=== PATIENT | male | born 1970 | race Caucasian/White ===

== ENCOUNTER 2018-10-18 06:39 | Inpatient (IN) ==
[2018-10-18] MEDS ORDERED: M.V.I.-12 10 ML, FOLIC ACID 1 MG, MAGNESIUM SULFATE 1 GM, THIAMINE 100 MG in NS 1,000 ML IV ONE (07:02)
[2018-10-18] MEDS ORDERED: NS 1,000 ML IV ONE ×2 (07:10→10:15)
--- NOTE | 2018-10-18 07:17 | PROVIDER DOCUMENTATION ---
[id number] Abuse/Overdose - General Chief Complaint: Req. Detox Stated Complaint: WITHDRAWLS Time Seen by Provider: 10/18/18 06:56 Source: patient Allergies/Adverse Reactions: Allergies Allergy/AdvReac Type Severity Reaction Status Date / Time No Known Allergies Allergy Verified 10/18/18 06:49 Home Medications: Home Medication List Medication Instructions Recorded Confirmed Last Taken Type Hydroxyzine [Atarax] 10 mg PO DAILY 09/08/15 09/15/15 09/08/15 History Hydromorphone [Dilaudid] 2 mg PO Q4H PRN PRN #30 tablet 09/19/15 Unknown Rx LISINOpril [Prinivil] 10 mg PO DAILY #30 tablet 09/19/15 Unknown Rx - History of Present Illness-Drug/Alcohol Nature of Presenting Problem: 48 Y/O WM with hx of alcoholism states that he has started drinking again in the last week up to 1.5 case of beer or bottle of whiskey daily. Pt states that he wants to detox "at home" and refuses inpt detox. This episode of drinking or use began:: 1 week ago Severity: reports: moderate Situational problems related to:: reports: spouse, other (family and land stress per pt.) Psychiatric Complaints: reports: denies symptoms Associated Symptoms: reports: denies symptoms Any injuries associated with this episode of intoxication?: No Similar Symptoms Previously?: Yes Recently seen or treated by another doctor?: No - Substance Abuse Substance Use: reports: alcohol - Alcohol Abuse Last Drink?: 11:00 Type and amount of last drink?: 1 bottle of whiskey Usually drinks:: binge (pt admits to drinking for past week and nothing before that.) Usual alcohol intake amount?: 1.5 case beer or bottle whiskey Other alcohols?: reports: N/A - Detox/Hospitalizations Previous detox/rehab admissions?: Yes Where was last hospitalization?: unknown What was the diagnosis?: alcohol abuse Currently enrolled in a Methadone Program?: No - Overdose Intentional drug overdose?: No Suicide Risk Assessment: male sex, drug or ETOH abuse Clinician's estimation of suicide risk?: low risk Review of Systems - Adult - REVIEW OF SYSTEMS - ADULT Constitutional: reports: no symptoms reported, see HPI Eyes: reports: no symptoms reported, see HPI Ears, Nose, Mouth & Throat: reports: no symptoms reported, see HPI Cardiovascular: reports: no symptoms reported, see HPI Respiratory: reports: no symptoms reported, see HPI Gastrointestinal: reports: no symptoms reported, see HPI Genitourinary: reports: no symptoms reported, see HPI Musculoskeletal: reports: see HPI, muscle weakness Integumentary: reports: no symptoms reported, see HPI Neurological: reports: no symptoms reported, see HPI Psychiatric: reports: no symptoms reported, see HPI Endocrine: reports: no symptoms reported, see HPI Hematologic/Lymphatic: reports: no symptoms reported, see HPI Allergic/Immunologic: reports: no symptoms reported, see HPI All Other Systems: Reviewed and Negative Past History - Adult - PAST MEDICAL HISTORY-ADULT Review of Records: reports: Nursing Assessment Review, Medications Reviewed, Social history reviewed & non-contributory. Major Childhood Illnesses: reports: denies history Cardiovascular: reports: HTN Respiratory: reports: denies history Gastrointestinal: reports: polyps Obstetrical/Gynecological: reports: denies history Genitourinary: reports: denies history Musculoskeletal: reports: denies history Neurological: reports: Seizures/Epilepsy Psychiatric: reports: anxiety, depression, ptsd Endocrine/Immune: reports: denies history Other Conditions: reports: denies history Additional History: Alcoholism - PRIOR SURGERIES/PROCEDURES Surgical/Procedure History: reports: reviewed, not pertinent - PRIOR HOSPITALIZATIONS Prior Hospitalizations: reports: none - IMMUNIZATION STATUS Childhood Immunizations: See Nurse Assessment Flu Vaccine: See Nurse Assessment - FAMILY HISTORY Family History: reviewed, not pertinent Physical Exam-General - PHYSICAL EXAM-ADULT Initial Vital Signs Reviewed: Yes - CONSTITUTIONAL General Appearance: appears well, alert, no apparent distress - EYES Eyes: PERRL/EOMI - HEAD, EARS, NOSE, MOUTH & THROAT HENMT: normocephalic/atraumatic, moist mucous membranes - NECK Neck: non-tender, full range of motion, supple, normal inspection - RESPIRATORY Respiratory: chest non-tender, lungs clear, normal breath sounds, no pleuratic chest pain, no respiratory distress, no accessory muscle use - CARDIOVASCULAR Cardiovascular: normal peripheral pulses, no edema, no gallop, no JVD, no murmur , tachycardia - GASTROINTESTINAL (ABDOMEN) Abdominal Exam: normal bowel sounds, non tender, soft, no organomegaly, no pulsatile mass - LYMPHATIC Lymphatic: no adenopathy - MUSCULOSKELETAL Back Exam: normal inspection, no CVA tenderness, no vertebral tenderness Extremity: normal range of motion, non-tender, normal gait, normal inspection, no pedal edema, no calf tenderness, normal capillary refill - SKIN Integumentary: normal color, normal turgor - NEUROLOGIC Neurologic: soil checker II-XII nml as tested, grossly normal, no motor/sensory deficits - PSYCHIATRIC Psych/Mental Status: normal mood/affect, normal thought content, normal thought process, oriented x 3 Progress - PLAN OF CARE/RESULTS Progress/Plan/Lab Results: Vital Signs - 8 hr 10/18/18 06:43 10/18/18 09:39 Temperature 98.0 F Pulse Rate 130 H 116 H Respiratory Rate 24 26 H Blood Pressure 127/80 127/088 O2 Sat by Pulse Oximetry 98 95 Laboratory Results - last 24 hr 10/18/18 10/18/18 10/18/18 06:58 06:58 06:58 WBC 17.26 H RBC 5.60 Hgb 17.8 Hct 48.3 MCV 86.3 MCH 31.8 H MCHC 36.9 RDW Std Deviation 13.4 Plt Count 232 MPV 8.7 Immature Gran % (Auto) 0.3 Neut % (Auto) 74.7 Lymph % (Auto) 16.5 L [place] % (Auto) 6.4 Eos % (Auto) 1.5 Baso % (Auto) 0.6 Immature Gran # (Auto) 0.05 H Neut # (Auto) 12.90 H Lymph # (Auto) 2.85 [place] # (Auto) 1.10 H Eos # (Auto) 0.26 Baso # (Auto) 0.10 Sodium 135 L Potassium 3.4 L Chloride 100 Carbon Dioxide 17 L Anion Gap 18 BUN 8 Creatinine 0.9 Estimated GFR/1.73 m2 > 60 BUN/Creatinine Ratio 9 Glucose 191 H Calculated Osmolality 274 Calcium 8.1 L Total Bilirubin 0.20 AST 14 ALT 12 Alkaline Phosphatase 97 Total Protein 7.5 Albumin 4.3 Globulin 3.0 Albumin/Globulin Ratio 1.0 Urine Source Urine Color Urine Clarity Urine pH Ur Specific [place] Urine Protein Urine Ketones Urine Blood Urine Nitrite Urine Bilirubin Urine Urobilinogen Urine Microscopic RBC Urine WBC Urine Microscopic WBC Ur Epithelial Cells Urine Crystals Urine Bacteria Urine Casts Urine Yeast Urine Glucose Urine Opiates Screen Ur Oxycodone Screen Urine Methadone Screen U Propoxyphene Qual Ur Barbituates Screen Ur Tricyclics Screen Ur Phencyclidine Scrn Ur Amphetamines Screen U Methamphetamines Scrn U Benzodiazepines Scrn Urine Cocaine Screen U Cannabinoids Screen Plasma/Serum Ethyl Alc 294 H 10/18/18 10/18/18 10/18/18 06:58 06:58 10:15 WBC RBC Hgb Hct MCV MCH MCHC RDW Std Deviation Plt Count MPV Immature Gran % (Auto) Neut % (Auto) Lymph % (Auto) [place] % (Auto) Eos % (Auto) Baso % (Auto) Immature Gran # (Auto) Neut # (Auto) Lymph # (Auto) [place] # (Auto) Eos # (Auto) Baso # (Auto) Sodium Potassium Chloride Carbon Dioxide Anion Gap BUN Creatinine Estimated GFR/1.73 m2 BUN/Creatinine Ratio Glucose Calculated Osmolality Calcium Total Bilirubin AST ALT Alkaline Phosphatase Total Protein Albumin Globulin Albumin/Globulin Ratio Urine Source CLEAN CATCH Urine Color YELLOW Urine Clarity CLEAR Urine pH 5.0 Ur Specific [place] 1.020 Urine Protein TRACE A Urine Ketones TRACE Urine Blood TRACE Urine Nitrite NEGATIVE Urine Bilirubin NEGATIVE Urine Urobilinogen NORMAL Urine Microscopic RBC <10 Urine WBC TRACE A Urine Microscopic WBC <10 Ur Epithelial Cells <10 Urine Crystals NONE SEEN Urine Bacteria 2+ Urine Casts NONE SEEN Urine Yeast NONE SEEN Urine Glucose NEGATIVE Urine Opiates Screen NONE DETECTED Ur Oxycodone Screen NONE DETECTED Urine Methadone Screen NONE DETECTED U Propoxyphene Qual NONE DETECTED Ur Barbituates Screen NONE DETECTED Ur Tricyclics Screen NONE DETECTED Ur Phencyclidine Scrn NONE DETECTED Ur Amphetamines Screen NONE DETECTED U Methamphetamines Scrn NONE DETECTED U Benzodiazepines Scrn NONE DETECTED Urine Cocaine Screen NONE DETECTED U Cannabinoids Screen NONE DETECTED Plasma/Serum Ethyl Alc 158 H Orders Category Date Time Status Repeat Vital Signs .Heart Rate Care 10/18/18 09:29 Active cxr [CHEST-1 VIEW] [RAD] Stat Exams 10/18/18 09:30 Completed ALCOHOL BLOOD Stat Lab 10/18/18 06:58 Completed ALCOHOL BLOOD Stat Lab 10/18/18 10:15 Completed CBC WITH ELECTRONIC DIFF [HEME] Stat Lab 10/18/18 06:58 Completed COMPREHENSIVE METABOLIC PANEL [CHEM] Stat Lab 10/18/18 06:58 Completed URINE CULTURE [RM] Routine Lab 10/18/18 07:27 Or[address]UG SCREEN [address] Stat Lab 10/18/18 06:58 Completed ua [URINALYSIS PL W/POSS RFLX CULT] [URINALYSIS] Stat Lab 10/18/18 06:58 Completed 0.9% Sodium Chloride Inj [Ns] 1,000 ml Med 10/18/18 07:10 Discontinued IV 999 mls/hr 0.9% Sodium Chloride Inj [Ns] 1,000 ml Med 10/18/18 10:15 Discontinued IV 999 mls/hr Mvi [M.v.i.-12] 10 ml Med 10/18/18 07:02 Discontinued Folic Acid 1 mg Magnesium Sulfate 1 gm Thiamine 100 mg 0.9% Sodium Chloride Inj [Ns] 1,000 ml IV NOW Ondansetron [Zofran] Med 10/18/18 09:18 Discontinued 4 mg IV NOW ONE EKG [EKG] Stat Ther 10/18/18 06:59 Draft Result Diagrams: 10/18/18 06:58 10/18/18 06:58 - CONSULTS/PCP/HOSPITALIST Notification #1 *Consult/PCP/Hospitalist*: Rehab staff to see pt and accepted for rehab with Dr Rojas. Time Discussed: 11:18 Consult Disposition: Admit Departure - Departure Date of Disposition Decision: 10/18/18 Time of Disposition Decision: 11:18 DIAGNOSIS: Alcohol dependence, Alcohol intoxication, Dehydration Disposition: ADMITTED INPATIENT 09 Certified Medical Emergency: Emergent Condition: Fair Referrals and Follow-Ups: Andre Keen [Primary Care Provider] - - Critical Care Note This patient required my direct & personal management of CC.: No Attestation - Physician/ CHELSIE Attestation Patient care was provided by Advanced Practice Provider:: No The physician spent face to face time with patient:: Yes Advanced Practice Provider documentation review:: Supervising physician onsite and consulted in the evaluation and care of this patient. The physician did have a face to face encounter with the patient.
[2018-10-18 07:26] LABS: BILIRUBIN URINE NEGATIVE (NEGATIVE); BLOOD URINE TRACE (NEGATIVE); CLARITY CLEAR (CLEAR); COLOR YELLOW; GLUCOSE URINE NEGATIVE (NEGATIVE); KETONE URINE TRACE mg/dL (NEGATIVE); LEUKOCYTES URINE TRACE (NEGATIVE); NITRITE URINE NEGATIVE (NEGATIVE); PROTEIN URINE TRACE mg/dL (NEGATIVE); UROBILINOGEN URINE NORMAL
[2018-10-18 07:27] LABS: URINE BACTERIA 2+ /HFP; URINE CAST NONE SEEN /LPF; URINE CRYSTAL NONE SEEN /HPF; URINE EPITHELIAL CELLS <10 /HPF (<10); URINE RBC <10 /HPF (<10); URINE SOURCE CLEAN CATCH; URINE WBC <10 /HPF (<10); URINE YEAST NONE SEEN /HPF
[2018-10-18 07:33] LABS: AGAP 18; ALBUMIN 4.3 g/dL (3.5-5.0); ALKALINE PHOSPHATASE 97 U/L (32-122); BUN 8 mg/dL (8-22); CALCIUM 8.1 mg/dL (8.8-10.2); CHLORIDE 100 mmol/L (98-107); COSMO 274; CREATININE 0.9 mg/dL (0.7-1.2); ESTIMATED GFR > 60; GLUCOSE 191 mg/dL (70-104); GOT 14 U/L (10-34); GPT 12 U/L (10-44); POTASSIUM 3.4 mmol/L (3.5-5.1); SODIUM 135 mmol/L (136-145); TCO2 17 mmol/L (25-35); TOTAL PROTEIN 7.5 g/dL (6.3-8.3); UR AMPHETAMINES QUAL NONE DETECTED (NONE DETECT); UR BARBITUATES QUAL NONE DETECTED (NONE DETECT); UR BENZODIAZEPIN QUAL NONE DETECTED (NONE DETECT); UR CANNABINOIDS QUAL NONE DETECTED (NONE DETECT); UR COCAINE QUAL NONE DETECTED (NONE DETECT); UR METHADONE QUAL NONE DETECTED (NONE DETECT); UR METHAMPHETAMINE QUAL NONE DETECTED (NONE DETECT); UR OPIATES QUAL NONE DETECTED (NONE DETECT); UR OXYCODONE QUAL NONE DETECTED (NONE DETECT); UR PCP QUAL NONE DETECTED (NONE DETECT); UR PROPOXYPHENE QUAL NONE DETECTED (NONE DETECT); UR TCA QUAL NONE DETECTED (NONE DETECT)
[2018-10-18 07:53] LABS: BASO% 0.6 % (0.0-0.8); EOS# 0.26 X1000 (0.0-0.7); EOS% 1.5 % (0.0-10.0); HEMATOCRIT 48.3 % (42.0-52.0); HEMOGLOBIN 17.8 g/dL (14.0-18.0); IMM GRAN# 0.05 X1000 (0.0-0.04); IMM GRAN% 0.3 % (0.0-0.5); LYMPH# 2.85 X1000 (1.2-3.4); LYMPH% 16.5 % (20.5-51.1); MCH 31.8 PG (27-31); MCHC 36.9 g/dL (33-37); MCV 86.3 FL (81-99); MONO% 6.4 % (1.7-9.3); MPV 8.7 FL (7.4-10.4); NEUT% 74.7 % (42.2-75.2); PLT 232 X1000 (130-400); RDW 13.4 % (11.5-14.5); WBC 17.26 X1000 (4.8-10.8)
--- NOTE | 2018-10-18 08:33 | EKG Report ---
Test Performed on : 10/18/2018 08:24:29 AM Test Reason : detox Blood Pressure : / mmHG Vent. Rate : 104 BPM Atrial Rate : 104 BPM P-R Int : 144 ms QRS Dur : 074 ms QT Int : 332 ms P-R-T Axes : 061 073 074 degrees QTc Int : 436 ms Sinus tachycardia. Possible Left atrial enlargement Borderline ECG When compared with ECG of 15-SEP-2015 20:16, fusion complexes are no longer present Unconfirmed Result
[2018-10-18] MEDS ORDERED: ZOFRAN IV ONE (09:18)
--- NOTE | 2018-10-18 09:50 | Diag Imaging Result Doc PS360 ---
EXAM: CHEST-1 VIEW HISTORY: leukocytosis TECHNIQUE: Chest single view COMPARISON: 08/30/2015 FINDINGS: The lungs are well expanded. The heart is not enlarged. The vessels are not distended. There are no infiltrates. No effusion identified. IMPRESSION: No pneumonia Electronically signed by Ja Alcala 10/18/2018 9:48 AM
--- NOTE | 2018-10-18 10:14 | ED EKG INTERP ---
This chart was entered by Zonia Garza Scribe, acting as scribe for Yoan Bautista MD. EKG Interpretation - EKG Time of EKG reading by physician:: 08:24 EKG Read and Signed by:: Yoan Bautista EKG Interpretation (*Must complete 3 of following elements*): Abnormal (possible left atrial enlargement) Rate: 104 Rhythm: sinus tachy QRS: normal ST Wave: normal Attestation - Physician/ CHELSIE Attestation Patient care was provided by Advanced Practice Provider:: No The physician spent face to face time with patient:: Yes Advanced Practice Provider documentation review:: Supervising physician onsite and consulted in the evaluation and care of this patient. The physician did have a face to face encounter with the patient. This chart was documented by the indicated scribe, (Zonia Garza Scribe) and accurately reflects the services I performed and decisions made by me, Yoan Bautista MD, as attested by the provider's signature.
[2018-10-18] MEDS ORDERED: ATARAX PO PRN (11:37)
[2018-10-18] MEDS ORDERED: DESYREL PO PRN (11:37)
[2018-10-18] MEDS ORDERED: PHENOBARBITAL IV PRN (11:37)
[2018-10-18] MEDS ORDERED: MAALOX PLUS LIQUID PO PRN (11:37)
[2018-10-18] MEDS ORDERED: BENTYL PO PRN (11:37)
[2018-10-18] MEDS ORDERED: DULCOLAX PR PRN (11:37)
[2018-10-18] MEDS ORDERED: D5W 1,000 ML IV PRN (11:37)
[2018-10-18] MEDS ORDERED: SEROQUEL PO PRN (11:37)
[2018-10-18] MEDS ORDERED: SENOKOT PO PRN (11:37)
[2018-10-18] MEDS ORDERED: TUBERSOL ID ONE (11:37)
[2018-10-18] MEDS ORDERED: ZOFRAN ODT PO PRN (11:37)
[2018-10-18] MEDS ORDERED: IMODIUM PO PRN (11:37)
[2018-10-18] MEDS ORDERED: MOTRIN PO PRN (11:37)
[2018-10-18] MEDS ORDERED: ATIVAN IV ONE (11:39)
[2018-10-18] MEDS: LIBRIUM PO SCH ×3 (12:50→23:10)
[2018-10-18] MEDS: TYLENOL PO PRN (12:50)
[2018-10-18] MEDS: ROBAXIN PO PRN (12:50)
[2018-10-18] MEDS: NICODERM PATCH TD PRN (12:50)
[2018-10-18] MEDS: ZOFRAN IV PRN (12:50)
[2018-10-18 13:29] LABS: HEMATOCRIT 43.7 % (42.0-52.0); HEMOGLOBIN 15.7 g/dL (14.0-18.0); MCH 31.4 PG (27-31); MCHC 35.9 g/dL (33-37); MCV 87.4 FL (81-99); MPV 8.6 FL (7.4-10.4); RDW 13.3 % (11.5-14.5); WBC 9.74 X1000 (4.8-10.8)
[2018-10-18 13:55] LABS: AGAP 13; ALBUMIN 3.9 g/dL (3.5-5.0); ALKALINE PHOSPHATASE 84 U/L (32-122); BUN 7 mg/dL (8-22); CALCIUM 7.6 mg/dL (8.8-10.2); CHLORIDE 107 mmol/L (98-107); COSMO 279; CREATININE 0.8 mg/dL (0.7-1.2); ESTIMATED GFR > 60; GLUCOSE 120 mg/dL (70-104); GOT 14 U/L (10-34); GPT 11 U/L (10-44); LIPASE 41 U/L (13-60); POTASSIUM 4.3 mmol/L (3.5-5.1); SODIUM 140 mmol/L (136-145); TCO2 21 mmol/L (25-35); TOTAL PROTEIN 6.7 g/dL (6.3-8.3)
[2018-10-18] MEDS ORDERED: PNEUMOVAX 23 IM ONE (14:00)
[2018-10-18 14:05] LABS: INR 0.96; PROTIME 13.3 Seconds (11.0-16.0)
[2018-10-19] MEDS: LIBRIUM PO SCH ×3 (05:07→17:34)
[2018-10-19] MEDS ORDERED: PROTONIX PO SCH (07:00)
[2018-10-19] MEDS ORDERED: VITAMIN B-1 PO SCH (09:00)
[2018-10-19] MEDS ORDERED: FOLIC ACID PO SCH (09:00)
[2018-10-19] MEDS ORDERED: THERA M PLUS PO SCH (09:00)
[2018-10-19] MEDS: ROBAXIN PO PRN ×2 (09:26→18:03)
[2018-10-19] MEDS: TYLENOL PO PRN (09:26)
[2018-10-19 17:23] VITALS: BP 144/91
[2018-10-19] MEDS: ZOFRAN IV PRN (17:34)
[2018-10-19] MEDS: NICODERM PATCH TD PRN (18:03)
[2018-10-19 20:50] LABS: UR AMPHETAMINES QUAL NONE DETECTED (NONE DETECT); UR BARBITUATES QUAL NONE DETECTED (NONE DETECT); UR BENZODIAZEPIN QUAL PRESUMPTIVE POSITIVE (NONE DETECT); UR CANNABINOIDS QUAL NONE DETECTED (NONE DETECT); UR COCAINE QUAL NONE DETECTED (NONE DETECT); UR METHADONE QUAL NONE DETECTED (NONE DETECT); UR METHAMPHETAMINE QUAL NONE DETECTED (NONE DETECT); UR OPIATES QUAL NONE DETECTED (NONE DETECT); UR OXYCODONE QUAL NONE DETECTED (NONE DETECT); UR PCP QUAL NONE DETECTED (NONE DETECT); UR PROPOXYPHENE QUAL NONE DETECTED (NONE DETECT); UR TCA QUAL NONE DETECTED (NONE DETECT)
--- NOTE | 2018-10-20 18:54 | PROGRESS NOTE ---
DATE: 10/19/2018 SUBJECTIVE: Patient seen and examined by myself on the morning of the . Notes that he did not sleep well last night. He is having increased muscle aches and tremors. Denies any fevers or chills. Denies any chest pains or palpitations. PHYSICAL EXAMINATION: Vital Signs: Reviewed and stable. He is awake, alert. He is in no current respiratory distress. HEENT: Normocephalic. Neck: Supple. CV: Regular rate. Chest: Clear. Abdomen: Soft. Extremities: Moves all extremities. ASSESSMENT: 1. Nausea and vomiting. 2. Abdominal pain. 3. Myalgias. 4. Paresthesias. 5. Paroxysmal sweating. 6. Alcohol abuse, withdrawal and stabilization. PLAN: We will continue patient in the hospital. Continue Librium taper. Continue to follow. Hopefully he can discharge home over the next few days. cc: Armen Rojas MD
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
--- NOTE | 2018-10-21 06:13 | DISCHARGE SUMMARY ---
ADMISSION DATE: 10/18/2018 DISCHARGE DATE: 10/19/2018 DISCHARGE DIAGNOSES: 1. Nausea and vomiting. 2. Abdominal pain. 3. Myalgias. 4. Paresthesias. 5. Paroxysmal sweating. 6. Alcohol abuse withdrawal and stabilization. 7. Patient left against medical advice. CONSULTATIONS: None. PROCEDURE: None. BRIEF HOSPITAL COURSE: The patient is a 48-year-old male who has had multiple issues with alcoholism in the past. He was admitted to the hospital and placed on high-dose Librium taper. We attempted to family court counsellor each day, and thankfully, he seemed to be doing well from an alcohol withdrawal standpoint. Apparently at some point, he went downstairs on the to smoke. Upon return, the staff instructed him that that was not an option, that he is not allowed to go downstairs or to disappear without the assistance of the staff. He was asked to repeat a urine drug screen to make sure that he had not taken any other substances while he was downstairs. The patient apparently became very irate, angry, agitated, cussing and yelling, and had to be escorted out of the hospital apparently. Unfortunately, as noted above, the patient left rather quickly, and no further discharge planning was able to be obtained. The patient additionally did not have any medication- assisted therapy on discharge. cc: Armen Rojas MD MTDD
== END 2018-10-19 20:23 | disposition left against medical advice (07) | DRG 894 ==
LOC: P.ED 06:39 → P.MEDSURG 11:44 → UNDODISIN 10-19 19:59
PROVIDERS: ADMIT Family Medicine; ATTEND Family Medicine
CPT/HCPCS: 71010; 71045; 80053; 80104; 80301; 80305; 80307; 80320; 81001; 82055; 82150; 83690; 85025; 85027; 85610; 86580; 87088; 93005; 96365; 96375; 99285; A9270; G0431; G0434; G0477; G0480; G6040; J2060; J2405; J3411; J3475; J7030